=== PATIENT | male | born 1995 | race Caucasian/White ===

== ENCOUNTER 2016-08-20 17:13 | Emergency (ER) | payer BC, OTHER ==
[~2016-08-20] VITALS: Ht 185.4 cm; Wt 86.6 kg
[2016-08-20 17:17] VITALS: TEMP 36.7; Ht 185.4 cm; Wt 86.6 kg
--- NOTE | 2016-08-20 17:46 | EMERGENCY ROOM VISIT NOTE ---
ED Visit Note First contact with patient: 17:23 CHIEF COMPLAINT: Right great toe laceration HISTORY OF PRESENT ILLNESS: Patient is a healthy 21-year-old white male who presents emergency department for evaluation of a skin injury to the medial right great toe. He struck it on a cornhole board at his apartment complex just prior to arrival. He was wearing sandals at the time. Bleeding is controlled. He has minimal pain. There is no discomfort with weightbearing. REVIEW OF SYSTEMS:Review of systems as per HPI. All other systems reviewed were negative. At least 6 systems reviewed. PMH: Electronic medical records are reviewed and summarized as above/below. See Problem List. Tetanus is up-to-date. SOCIAL HISTORY: Patient is a college student from [employer] who lives locally in an apartment with roommates. Nonsmoker, social EtOH. PHYSICAL EXAM: Vital Signs: Reviewed Nurse's notes. There is a partial soft tissue skin avulsion with a flap on the medial aspect of the right great toe. There is no foreign material in the wound and it looks clean. There is no active bleeding. No bony tenderness to palpation. EMERGENCY DEPARTMENT COURSE: The area was cleansed with saline and Betadine and the skin flap was excised. There was no repairable laceration. There was no further bleeding. Bacitracin and a light dressing were applied. The patient does not have any bony tenderness to suspect fracture, and radiographs were not felt to be indicated. Current/Historical Medications No Active Prescriptions or Reported Meds Allergies Coded Allergies: No Known Allergies (Unverified , 08/20/16) Vital Signs Date Time Temp Pulse Resp B/P (MAP) Pulse Ox O2 Delivery O2 Flow Rate FiO2 08/20/16 18:19 61 20 151/80 98 08/20/16 17:50 96 16 136/70 96 Room Air 08/20/16 17:17 36.7 57 16 135/68 96 Room Air Departure Information Impression Primary Impression: Avulsion of skin of toe Prescriptions No Active Prescriptions or Reported Meds Patient Instructions My [facility] Additional Instructions Clean wound daily, cover with an antibiotic ointment and keep covered until it heals. Return for any signs of infection (increasing redness, swelling, drainage). Ice and elevate for swelling and pain. Ibuprofen 600 mg and Tylenol 1000 mg every 6 hrs for pain. Problem Qualifiers Primary Impression: Avulsion of skin of toe Encounter type: initial encounter Qualified Codes: S91.109A - Unspecified open wound of unspecified toe(s) without damage to nail, initial encounter
[2016-08-20 18:19] VITALS: BP 151/80; PULSE 61; O2SAT 98
== END 2016-08-20 18:20 | disposition home or self-care (01) ==
LOC: C.EDB 17:14 → C.EDD 18:20
DX: S91.109A Unspecified open wound of unspecified toe(s) without damage to nail, initial encounter (principal); W22.8XXA Striking against or struck by other objects, initial encounter; Y92.039 Unspecified place in apartment as the place of occurrence of the external cause